=== PATIENT | male | born 1965 | race Caucasian/White ===

== ENCOUNTER 2022-10-05 13:21 | Outpatient (CLI) | payer MEDICAID, SELFPAY ==
--- NOTE | 2022-10-05 | CT_ITS ---
WS: [id number] LDCT LUNG CANCER SCREENING HISTORY: TOBACCO USE TECHNIQUE: Axial imaging performed from the apices to 1 cm below the costophrenic angles. Coronal and sagittal reformats are submitted with axial MIP series. All CT scans at [facility] use at least one of these dose optimization techniques: automated exposure control; mA and/or kV adjustment per patient size (includes targeted exams where dose is matched to clinical indication); or iterativ e reconstruction. DLP: 81.17 mGy.cm DIvol: Mean CTDIvol: 1.60 (mGy) COMPARISON: None available. Diagnostic quality: Satisfactory Lung Nodules: No lesions were pulmonary nodules or mass. Lungs: Linear atelectasis at the lingula. Benign 4 mm nodule along the LEFT major fissure. Heart: Normal size heart. No pericardial effusion. Other findings: Enlarged RIGHT paratracheal lymph node. Diameter of this lymph node is 1.8 cm no hiat al hernia. Normal adrenal glands. CT/CT lung screening [id number] IMPRESSION: LUNG-RADS: 1S-Negative with Significant Findings FOLLOW UP: 12 Month: Continue annual screening with LDCT OTHER FINDINGS (S MODIFIER): Large RIGHT paratracheal lymph node measures 18 mm . Abnormal lymph node. Etiology is not determined. Recommend follow-up chest CT with IV contrast in 3 months. This could be a reactive lymph node.
== END 2022-10-05 13:22 | disposition home or self-care (01) ==
LOC: RAD 13:27
PROVIDERS: PCP Nurse Practitioner Family; Visit Provider Family Medicine
DX: Z12.2 Encounter for screening for malignant neoplasm of respiratory organs (principal); Z72.0 Tobacco use
CPT/HCPCS: 71271

== ENCOUNTER 2023-01-11 16:44 | Outpatient (CLI) | payer MEDICAID, SELFPAY ==
--- NOTE | 2023-01-11 16:52 | CT_ITS ---
WS: [id number] CT CHEST TECHNIQUE: Contrast enhanced CT of the chest with coronal and sagittal reformatted images. CLINICAL INFORMATION: PARATRACHEAL LYMPHADENOPATHY COMPARISON: None. DLP: 621.[address] scans at [facility] use at least one of these dose optimization techniques: automated e xposure control; mA and/or kV adjustment per patient size (includes targeted exams where dose is matc hed to clinical indication); or iterative reconstruction. FINDINGS: Normal caliber thoracic aorta. Aortic calcification. Coronary calcification. Pretracheal lymphadenopa thy measuring 1.9 cm unchanged. Tiny noncalcified nodule in the LEFT fissure 4 mm and LEFT lower lobe measuring 3 mm. No focal pneumonia or pleural fluid. Moderate spondylitic changes thoracic spine with disc space narr owing in the upper and mid thoracic spine. Adrenal glands are normal. Diffuse fatty infiltration liver. CT/CT chest w con* [id number] IMPRESSION: 1. No suspicious pulmonary parenchymal opacities. 2. Stable enlarged RIGHT peritracheal lymph node measuring 1.9 CM. This remain s indeterminant and recommend 6-12 month follow-up chest CT. 3. Stable 4 mm nodule in the LEFT fissure and tiny 3 mm nodule LEFT lower lobe laterally.
[2023-01-11] MEDS: iohexol 350 mg/mL 100 mL Btl IV (17:15)
== END 2023-01-11 16:45 | disposition home or self-care (01) ==
PROVIDERS: PCP Nurse Practitioner Family; Visit Provider Family Medicine
DX: R59.1 Generalized enlarged lymph nodes (principal)
CPT/HCPCS: 71260; Q9967

== ENCOUNTER 2024-10-18 14:54 | Outpatient (CLI) | payer OTHER, SELFPAY | END 2024-10-18 14:55 | disposition home or self-care (01) | LOC: SLEEP 14:57 | PROVIDERS: PCP Nurse Practitioner Family; Visit Provider Family Medicine | DX: G47.33 Obstructive sleep apnea (adult) (pediatric) (principal); G47.36 Sleep related hypoventilation in conditions classified elsewhere | CPT/HCPCS: G0399 ==

== ENCOUNTER → 2025-03-26 13:02 | Outpatient (BNVA) | payer OTHER, SELFPAY | PROVIDERS: PCP Nurse Practitioner Family; Visit Provider Internal Medicine Cardiovascular Disease | DX: R07.9 Chest pain, unspecified (principal) | CPT/HCPCS: 93005 ==